=== PATIENT | male | born 1965 | race Caucasian/White ===

== ENCOUNTER 2022-10-06 08:55 | Outpatient (CLI) | payer OTHER, SELFPAY | END 2022-10-06 08:56 | disposition home or self-care (01) | LOC: NFLDREF 10-08 13:20 | PROVIDERS: PCP Family Medicine; Visit Provider Family Medicine | DX: I10 Essential (primary) hypertension (principal); Z12.5 Encounter for screening for malignant neoplasm of prostate; Z13.6 Encounter for screening for cardiovascular disorders | CPT/HCPCS: 80048; 80061; 84153 ==

== ENCOUNTER 2023-01-21 07:48 | Outpatient (CLI) | payer OTHER, SELFPAY | END 2023-01-21 07:49 | disposition home or self-care (01) | LOC: NFLDREF 01-23 19:58 | PROVIDERS: PCP Family Medicine; Referring Provider Family Medicine; Visit Provider Family Medicine | DX: E78.5 Hyperlipidemia, unspecified (principal) | CPT/HCPCS: 80061; 84450; 84460 ==

== ENCOUNTER 2023-08-13 08:57 | Outpatient (CLI) | payer OTHER, SELFPAY | END 2023-08-13 08:58 | disposition home or self-care (01) | LOC: NFLDREF 08-16 21:09 | PROVIDERS: PCP Family Medicine; Referring Provider Family Medicine; Visit Provider Family Medicine | DX: E78.5 Hyperlipidemia, unspecified (principal); Z12.5 Encounter for screening for malignant neoplasm of prostate; R31.29 Other microscopic hematuria; R35.0 Frequency of micturition | CPT/HCPCS: 80053; 80061; 87086; G0103 ==

== ENCOUNTER 2024-03-30 08:02 | Outpatient (CLI) | payer OTHER, SELFPAY | END 2024-03-30 08:03 | disposition home or self-care (01) | PROVIDERS: PCP Family Medicine; Visit Provider Family Medicine | DX: E78.5 Hyperlipidemia, unspecified (principal); I10 Essential (primary) hypertension | CPT/HCPCS: 80053; 80061 ==